=== PATIENT | male | born 1970 | race Caucasian/White ===

== ENCOUNTER 2017-11-21 20:40 | Emergency (ER) | payer MEDICARE ==
[2017-11-21] MEDS ORDERED: ACETAMINOPHEN 325 MG TABLET PO ONE (22:16)
--- NOTE | 2017-11-21 22:31 | RADIOLOGY REPORT (SQ) ---
EXAM DESCRIPTION: CHEST PA/LAT COMPLETED DATE/TIME: 11/21/2017 9:56 pm REASON FOR STUDY: COUGH, FEVER COMPARISON: 08/07/2009 EXAM PARAMETERS: NUMBER OF VIEWS: two views TECHNIQUE: Digital Frontal and Lateral radiographic views of the chest acquired. RADIATION DOSE: NA LIMITATIONS: none FINDINGS: LUNGS AND PLEURA: The lungs are hyperexpanded. There are no infiltrates or effusions. Th ere is no mass. MEDIASTINUM AND HILAR STRUCTURES: No masses or contour abnormalities. HEART AND VASCULAR STRUCTURES: Heart normal size. No evidence for failure. BONES: Osteopenia. No acute abnormality. HARDWARE: None in the chest. OTHER: No other significant finding. IMPRESSION: Chronic lung changes with no acute cardiopulmonary disease. TECHNICAL DOCUMENTATION: JOB ID: [id number] [employer]- All Rights Reserved Reading location - IP/workstation name: [email or web address]
--- NOTE | 2017-11-21 22:48 | ER Document Report ---
ED General - General Chief Complaint: Cold Symptoms, fevers Stated Complaint: FEVER Time Seen by Provider: 11/21/17 21:35 TRAVEL OUTSIDE OF THE [place] IN LAST 30 DAYS: No - HPI Notes: Patient is a 47-year-old male presents emergency department with report of minimal congestion that came on 3 days ago but started with a fever earlier today to 100.8 with chills. History of scoliosis and intracerebral shunt. Patient had mild diarrhea previously. No recent antibiotics. No chest pain or difficulty breathing or neck stiffness or nausea or vomiting. No obvious exposures to the flu that he is aware of. - Related Data Allergies/Adverse Reactions: No Known Allergies Allergy (Unverified 11/21/17 20:44) Past Medical History - General Information source: Patient, Parent - Social History Smoking Status: Never Smoker Chew tobacco use (# tins/day): No Frequency of alcohol use: None Drug Abuse: None Lives with: Family Family History: Reviewed & Not Pertinent Patient has suicidal ideation: No Patient has homicidal ideation: No Neurological Medical History: Reports: Hx Seizures Renal/ Medical History: Denies: Hx Peritoneal Dialysis Review of Systems - Review of Systems Notes: REVIEW OF SYSTEMS: CONSTITUTIONAL : Reports fever and chills. EENT: Denies eye, ear, throat, or mouth pain or symptoms. Denies throat, tongue, or mouth swelling or difficulty swallowing. CARDIOVASCULAR: Denies chest pain. Denies palpitations or racing or irregular heart beat. Denies ankle edema. RESPIRATORY: Denies shortness of breath, difficulty breathing, or wheezing. GASTROINTESTINAL: Denies abdominal pain or distention. Denies nausea, vomiting , or diarrhea. Denies blood in vomitus, stools, or per rectum. Denies black, tarry stools. Denies constipation. GENITOURINARY: Denies difficulty urinating, painful urination, burning, frequency, blood in urine, or discharge. MUSCULOSKELETAL: Denies back or neck pain or stiffness. Denies joint pain or swelling. SKIN: Denies rash, lesions or sores. HEMATOLOGIC : Denies easy bruising or bleeding. LYMPHATIC: Denies swollen, enlarged glands. NEUROLOGICAL: Denies confusion or altered mental status. Denies passing out or loss of consciousness. Denies dizziness or lightheadedness. Denies headache. Denies weakness or paralysis or loss of use of either side. Denies problems with gait or speech. Denies sensory loss, numbness, or tingling. Denies seizures. PSYCHIATRIC: Denies anxiety or stress. Denies depression, suicidal ideation, or homicidal ideation. ALL OTHER SYSTEMS REVIEWED AND NEGATIVE. Dictation was performed using [employer] voice recognition software Physical Exam - Vital signs Vitals: Temp Pulse Resp BP Pulse Ox 99.8 F 104 H 20 103/54 L 96 11/21/17 20:57 11/21/17 20:57 11/21/17 20:57 11/21/17 20:57 11/21/17 20:57 - Notes Notes: PHYSICAL EXAMINATION: GENERAL: Well-appearing, well-nourished and in no acute distress. HEAD: Intracranial shunt scars noted. otherwise atraumatic. Nontender. EYES: Pupils equal round and reactive to light, extraocular movements intact, sclera anicteric, conjunctiva are normal. ENT: Nares patent with obvious clear coryza noted. Moist mucous membranes. NECK: Normal range of motion, supple without lymphadenopathy. No meningismus. Right lateral neck shunt site noted without evidence for tenderness. LUNGS: Breath sounds clear to auscultation bilaterally and equal. No wheezes rales or rhonchi. HEART: Regular rate and rhythm without murmurs. ABDOMEN: Soft, nontender, nondistended abdomen. No guarding, no rebound. No masses appreciated. Musculoskeletal: Normal range of motion, no pitting or edema. No cyanosis. NEUROLOGICAL: Cranial nerves grossly intact. speech intact per patient's baseline. Normal sensory, motor exams. Mild degree quadriplegia which is unchanged. Patient is alert and oriented 3. PSYCH: Normal mood, normal affect. SKIN: Warm, Dry, normal turgor, no rashes or lesions noted. Course - Re-evaluation Re-evalutation: 11/21/17 22:48 Chest x-ray negative for acute pneumonia. Pulse ox is normal. No evidence for pneumothorax or suggestion for congestive heart failure. 11/21/17 22:48 Flu tests unavailable, but pt is out of the range of treatment based upon duration of symptoms. will tx for bronchitis 11/21/17 23:02 - Vital Signs Vital signs: Temp Pulse Resp BP Pulse Ox 99.8 F 104 H 20 103/54 L 96 11/21/17 20:57 11/21/17 20:57 11/21/17 20:57 11/21/17 20:57 11/21/17 20:57 Discharge - Discharge Clinical Impression: Bronchitis Fever Qualifiers: Fever type: unspecified Qualified Code(s): R50.9 - Fever, unspecified Condition: Stable Disposition: HOME, SELF-CARE Instructions: Fever ([facility]), Bronchitis ([facility]) Additional Instructions: drink plenty of fluids. Return to the emergency department in case of high fever, difficulty breathing or chest pain. Take Tylenol as directed for fever. Prescriptions: Levofloxacin [Levaquin 750 mg Tablet] 750 mg PO DAILY #5 tablet Forms: Return to Work Referrals: AMISHA GÓMEZ MD [Primary Care Provider] - Follow up as needed
[2017-11-21] MEDS ORDERED: LEVOFLOXACIN 750 MG TABLET PO ONE (23:02)
[2017-11-21 23:22] VITALS: BP 115/69
== END 2017-11-21 23:22 | disposition home or self-care (01) ==
LOC: ER 20:40
DX: J40 Bronchitis, not specified as acute or chronic (principal); R50.9 Fever, unspecified; R68.89 Other general symptoms and signs; R19.7 Diarrhea, unspecified
CPT/HCPCS: 99283; 71046; A9270 ×2